=== PATIENT | female | born 1985 | race Caucasian/White ===

== ENCOUNTER 2019-04-19 19:07 | Emergency (ER) | payer BC ==
[~2019-04-19] VITALS: Ht 154.9 cm; Wt 62.7 kg
[2019-04-19 19:15] VITALS: BP 111/74
[2019-04-19 21:17] LABS: BASO % 0.5 % (0.0-2.0); EOS % 0.4 % (0-4.0); GRAN # 4.1 (1.4-6.5); GRAN % 54.5 % (42.2-75.2); HEMATOCRIT 46.9 % (37.0-47.0); HEMOGLOBIN 15.6 g/dl (12.5-16.0); LYMPH # 2.7 (1.2-3.4); LYMPH % 36.8 % (20.0-51.0); MEAN CELL VOLUME 93 fl (80.0-100.0); MEAN CORPUSCULAR HEMOGLOBIN 31 pg (27.0-31.0); MEAN CORPUSCULAR HGB CONC 33 g/dl (33.0-37.0); MEAN PLATELET VOLUME 10.3 fl (7.4-10.4); MONO # 0.6 (0.1-0.6); MONO % 7.7 % (1.7-9.3); PLATELET COUNT 226 K/mm3 (130-400); RED BLOOD COUNT 5.05 M/mm3 (4.10-5.30); REDCELL DISTRIBUTION WIDTH-CV 12.8 % (11.5-14.5)
[2019-04-19 21:28] LABS: ALBUMIN 4.8 gm/dL (3.5-5.0); BILIRUBIN,TOTAL 0.6 mg/dL (0.0-1.0); CALCIUM 9.4 mg/dL (8.4-10.2); CREATININE, serum 0.64 (0.52-1.25); POTASSIUM 3.7 mmol/L (3.4-5.0); TOTAL PROTEIN 8.2 gm/dL (6.4-8.2)
[2019-04-19] MEDS ORDERED: FIORICET 325 MG1 TA1 PO (22:01)
[2019-04-19 22:13] VITALS: PULSE 81; TEMP 98.2
== END 2019-04-19 22:16 | disposition home or self-care (01) ==
LOC: COL.ER 19:07
PROVIDERS: Nurse Practitioner
DX: R51 Headache (principal); Z87.891 Personal history of nicotine dependence
CPT/HCPCS: J1200; J1885; J2765; J7030